=== PATIENT | female | born 1990 | race American Indian/Alaskan Native ===

== ENCOUNTER 2017-08-09 16:36 | Emergency (ER) | payer OTHER ==
--- NOTE | 2017-08-09 17:48 | XRay Report ---
FINAL REPORT EXAM: XR CHEST ROUTINE 2V HISTORY: upper resp infection TECHNIQUE: Two views of the chest Comparison: None FINDINGS: Heart size is normal. Lungs are well expanded. There are no definite focal infiltrates or consolidations. There is no pleural effusion. There is mild peribronchial thickening in the perihilar distribution which may represent bronchitis. IMPRESSION: No pneumonia identified. Possible bronchitis.
[2017-08-09 19:47] VITALS: BP 127/86
[2017-08-09] MEDS ORDERED: PROVENTIL IH ONE ×2 (19:47→19:55)
[2017-08-09] MEDS ORDERED: ATROVENT IH ONE (19:49)
--- NOTE | 2017-08-09 19:51 | Emergency Department Report ---
HPI - General Chief Complaint: Upper Respiratory Infection Time Seen by Provider: 08/09/17 19:45 - HPI HPI: She reports that she is visiting from [place] and she started have then wheezing and cough and she seems to be getting this twice yearly. She said last time she had it was 6 months ago and she was placed on inhaler and steroids with antibiotic. She reports that she's never been diagnosed with asthma or bronchitis. Denies smoking. Denies any lung disease. Denies any nausea or vomiting. Denies any chest pain. She reports cough and wheezing. Pain is 0 out of 10. No [id number] medication taken. ED Past Medical Hx - Past Medical History Previous Medical History?: No - Surgical History Past Surgical History?: Yes Additional Surgical History: c section - Family History Family history: no significant - Social History Smoking Status: Never Smoker Substance Use Type: Alcohol - Medications Home Medications: Home Medications Medication Instructions Recorded Confirmed Last Taken Type ALBUTEROL Inhaler [ProAir HFA 2 puff IH QID PRN 30 Days #1 08/09/17 Unknown Rx Inhaler] inhalation Amoxicillin/K Clav Tab [Augmentin 1 tab PO Q12HR 10 Days #20 tab 08/09/17 Unknown Rx 875 mg] Cetirizine HCl [ZyrTEC] 10 mg PO QAM 14 Days #10 capsule 08/09/17 Unknown Rx Fluticasone [Flonase] 1 spray NS QDAY 14 Days #1 bottle 08/09/17 Unknown Rx methylPREDNISolone [Medrol Dose 4 mg PO QAM 6 Days #1 pack 08/09/17 Unknown Rx Zan] ED Review of Systems ROS: Stated complaint: SOB/WHEEZING Other details as noted in HPI Comment: All other systems reviewed and negative Constitutional: no symptoms reported Eyes: denies: eye pain, vision change ENT: denies: throat pain, dental pain, congestion Respiratory: no symptoms reported Cardiovascular: denies: chest pain, palpitations, dyspnea on exertion, orthopnea , edema, syncope, paroxysmal nocturnal dyspnea Gastrointestinal: denies: abdominal pain, nausea, vomiting, diarrhea, constipation, hematemesis, hematochezia Musculoskeletal: denies: back pain, joint swelling, arthralgia, myalgia Skin: denies: rash Neurological: denies: headache, weakness, numbness, paresthesias, abnormal gait Physical Exam - Physical Exam Vital Signs: Vital Signs 08/09/17 08/09/17 16:57 19:46 Temperature 98.6 F 98.6 F Pulse Rate 105 H 98 H Respiratory 16 18 Rate Blood Pressure 106/66 Blood Pressure 127/86 [Right] O2 Sat by Pulse 97 98 Oximetry General: 27-year-old female well-nourished well-developed and nontoxic in appearance Physical Exam: Head: Normocephalic atraumatic Ears:BIateral TM congested without erythema and loss of bony landmarks. Mandeep EAC with normal exam. No mastoid bone tenderness. Mouth: Moist, no pharyngeal erythema or exudate . No tonsillar erythema or exudate. UVULA midline and oral airways patent. No peritonsillar abscess Neck: Nontender to palpate, supple, normal range of motion. No adenopathy. No c- spine tenderness. Nose: Bilateral nasal mucosa congested with clear drainage. Maxillary and frontal sinuses tender to palpate. Eyes: Sclerae and conjunctiva without injection. Bilateral pupils equal and reactive to light. Bilateral lids are normal. Normal accommodation.BEOMI Lungs:Wheezing throughout lung robles. dry cough. Normal work of breathing and no chest wall tenderness CV: S1, S2. regular rate and rhythm negative murmur. Capillary refill is less than 3 seconds Skin: Clean dry and intact, no rashes or lesions Psych: Normal mood and behavior ED Course Vital Signs 08/09/17 08/09/17 16:57 19:46 Temperature 98.6 F 98.6 F Pulse Rate 105 H 98 H Respiratory 16 18 Rate Blood Pressure 106/66 Blood Pressure 127/86 [Right] O2 Sat by Pulse 97 98 Oximetry - Reevaluation(s) Reevaluation #1: 08/09/17 21:53 Received albuterol 10 mg, Atrovent 0.5 mg nebulizer and emergency room, she received Solu-Medrol 125 mg IV. Lungs reevaluated after nebulizer treatment and Solu-Medrol and started her lung sounds are clear and patient states she felt better. ED Medical Decision Making - Radiology Data Radiology results: report reviewed Chest x-ray revealed no pneumonia and probably bronchitis - Medical Decision Making ED course: Patient here for coughing and wheezing which she has had in the past without any diagnosis of bronchitis or asthma. Patient says she is visiting from [place] and she's had this for the past several years twice a year. She is not a smoker. She says she has a primary care physician. I discussed with her that she will need to follow up with her primary care physician in [place] and requests to evaluated for chronic bronchitis or asthma. Patient was treated with albuterol 10 mg and Atrovent 0.5 mg nebulizer and Solu-Medrol 125 mg IV with relief of wheezing. She says she feels better. I discussed diagnosis and treatment plan with patient her x-ray revealed that she had no pneumonia but reports probability of bronchitis. Patient discharged home in stable condition with prescription for albuterol HFA, Medrol Dosepak , Zyrtec , flonase and Augmentin. Critical care attestation.: If time is entered above; I have spent that time in minutes in the direct care of this critically ill patient, excluding procedure time. ED Disposition Clinical Impression: Bronchitis, Upper respiratory infection with cough and congestion Disposition: TO HOME OR SELFCARE Is pt being admited?: No Does the pt Need Aspirin: No Condition: Stable Instructions: Acute Bronchitis (ED), Acute Cough (ED), Upper Respiratory Infection (ED) Additional Instructions: Please follow up with the primary care physician in [place] in the next 3-5 days for referral for outpatient pulmonary function tests Take medication as prescribed If Symptoms worsen, please return to the emergency room Prescriptions: ALBUTEROL Inhaler [ProAir HFA Inhaler] 2 puff IH QID PRN 30 Days #1 inhalation PRN Reason: Wheezing Amoxicillin/K Clav Tab [Augmentin 875 mg] 1 tab PO Q12HR 10 Days #20 tab Cetirizine HCl [ZyrTEC] 10 mg PO QAM 14 Days #10 capsule Fluticasone [Flonase] 1 spray NS QDAY 14 Days #1 bottle methylPREDNISolone [Medrol Dose Zan] 4 mg PO QAM 6 Days #1 pack Referrals: PRIMARY CARE, [Primary Care Provider] - 3-5 Days Forms: Work/School Release Form(ED)
== END 2017-08-09 22:28 | disposition home or self-care (01) ==
LOC: EDSEX → ED 16:36
DX: J40 Bronchitis, not specified as acute or chronic (principal); Z79.899 Other long term (current) drug therapy
CPT/HCPCS: 71020; 94640; 96374; 99283; J2930